=== PATIENT | female | born 1960 | race Caucasian/White ===

== ENCOUNTER → 2016-09-17 | Outpatient (CLI) | payer OTHER ==
[~2016-09-17] MED LIST: ADV25050 INHALATION; APRACLONIDINE 1% 0.1 ML OPH ONE; ASPI-664 PO; BENA40TA41 PO; IBUP-1542 PO; IPRA12.93 INHALATION; LANT3I SC; MTF1000T PO; NOVO3I SC; OPHTHALMIC IRRIG SOLUTION 120 ML ONE; PANT40TA3 PO; PILOCARPINE 2% 15ML OPH ONE; PROPARACAINE 0.5% 15 ML OPH ONE
== END | disposition home or self-care (01) ==
LOC: RAD 09:55
PROVIDERS: ATTEND Ophthalmology
DX: H40.20X0 Unspecified primary angle-closure glaucoma, stage unspecified (principal)
CPT/HCPCS: 66761; Z7610

== ENCOUNTER 2017-06-08 15:38 | Inpatient (IN) | payer OTHER ==
[~2017-06-08] VITALS: Ht 170.2 cm; Wt 95.1 kg
[~2017-06-08 15:38] MED LIST changes: -APRACLONIDINE 1% 0.1 ML OPH ONE; -OPHTHALMIC IRRIG SOLUTION 120 ML ONE; -PILOCARPINE 2% 15ML OPH ONE; -PROPARACAINE 0.5% 15 ML OPH ONE
--- NOTE | 2017-06-08 19:42 | ERA ---
ER Documentation Chief Complaint Date/Time DATE: 06/08/17 TIME: 19:39 Chief Complaint FROM [facility] HPI Patient is a 56-year-old female with diabetes and Charcot foot with history of osteomyelitis of the right foot who has had a chronic ulcer draining fluid. She was seen in the english lecturer's clinic today by Dr. Vides, who made noted that the skin appeared well-healed, but the patient was shivering and he was concerned that she may have infection. Patient denies having fevers. She states that she thought the clinic was called. She denies vomiting. She denies increased pain in the right foot.The patient reports having a CT scan 1 month ago which showed chronic osteomyelitis in the cuboid bone. The patient reports having an MRI 3 months ago, but does not know what the results showed.Patient is not currently on antibiotics. ROS All systems reviewed and are negative except as per history of present illness. Medications Home Meds Active Scripts Insulin Glargine* (Lantus*) 100 Unit/Ml Soln, 27 UNIT SC QAM for 30 Days Prov:NISHA FUCHS 06/08/16 Insulin Aspart* (Novolog Insulin Pen*) 100 Unit/Ml Soln, 5 UNIT SC WITH MEALS for 30 Days Prov:NISHA FUCHS 06/08/16 Pantoprazole* (Protonix*) 40 Mg Tablet., 40 MG PO BID for 30 Days, TAB Prov:NISHA FUCHS 06/08/16 Benazepril Hcl* (Benazepril Hcl*) 40 Mg Tablet, 40 MG PO DAILY for 30 Days, TAB Prov:NISHA FUCHS 06/08/16 Aspirin* (Aspirin* EC) 81 Mg Tablet.dr, 81 MG PO DAILY for 30 Days Prov:NISHA FUCHS 06/08/16 Reported Medications Pioglitazone Hcl* (Pioglitazone Hcl*) 30 Mg Tablet, 30 MG PO DAILY, TAB 06/08/17 Metformin Hcl* (Metformin Hcl*) 1,000 Mg Tablet, 1000 MG PO WITH BREAKFAST, #30 TAB 06/08/17 Ipratropium Wayne* (Atrovent HFA*) 12.9 Gm Aer.w.adap, 2 PUFF INHALATION Q4H Y for WHEEZING AND SOB, #1 INHALER 05/06/16 Salmeterol Xinaf/Fluticasone* (Advair*) 250-50 Diskus Inhaler, 1 INH INHALATION BID, #1 INHALER 05/06/16 Discontinued Reported Medications Ibuprofen* (Motrin*) 600 Mg Tab, 600 MG PO Q6H Y for PAIN, TAB 07/28/16 Discontinued Scripts Metformin* (Glucophage*) 1,000 Mg Tablet, 1000 MG PO BID, #60 TAB Prov:NISHA FUCHS 06/08/16 Allergies Allergies: Coded Allergies: No Known Allergy (Verified , 06/08/17) PMhx/Soc Past medical history: Diabetes mellitus, hypertension, Charcot foot, osteomyelitis Past surgical history: MOHS of face Social history: Denies tobacco, alcohol or illicit drugs. History of Surgery: Yes (SKIN CA ON FACE) Anesthesia Reaction: No Hx Neurological Disorder: No Hx Respiratory Disorders: Yes (COPD) Hx Cardiac Disorders: Yes (HTN) Hx Psychiatric Problems: No Hx Miscellaneous Medical Probl: No Hx Alcohol Use: No Hx Substance Use: No Hx Tobacco Use: No FmHx Noncontributory Physical Exam Vitals Vital Signs Date Time Temp Pulse Resp B/P Pulse Ox O2 Delivery O2 Flow Rate FiO2 06/08/17 23:00 99.5 101 16 123/58 100 Room Air 06/08/17 15:42 98.1 98 18 176/76 99 Physical Exam Const: Alert, no acute distress Head: Atraumatic Eyes: Normal Conjunctiva, No pallor, no icterus ENT: Normal External Ears, Nose and Mouth. Moist mucous membranes Neck: Full range of motion..~ No meningismus. Resp: Clear to auscultation bilaterally, No wheezes, no rales Cardio: Regular rate and rhythm, no murmurs Abd: Soft, non tender, non distended. Skin: No petechiae or rashes Back: No midline or flank tenderness Ext: No cyanosis,Trace edema to right ankle. Chronic deformity to right foot with diffuse erythema and warmth. No bulla formation. No drainage. Neur: Awake and alert, Cranial nerves II through XII intact bilaterally, strength sensation full in 4 extremities. Psych: Normal Mood and Affect Result Diagram: 06/08/17200406/08/172004 Results 24 hrs Laboratory Tests Test 06/08/17 20:05 06/08/17 20:37 White Blood Count 9.610^3/ul Red Blood Count 3.2410^6/ul Hemoglobin 9.3g/dl Hematocrit 29.1% Mean Corpuscular Volume 89.8fl Mean Corpuscular Hemoglobin 28.7pg Mean Corpuscular Hemoglobin Concent 32.0g/dl Red Cell Distribution Width 16.2% Platelet Count 85516^3/UL Mean Platelet Volume 8.9fl Neutrophils % 66.5% Lymphocytes % 25.2% Monocytes % 6.3% Eosinophils % 1.0% Basophils % 0.6% Nucleated Red Blood Cells % 0.0/100WBC Neutrophils # 6.410^3/ul Lymphocytes # 2.410^3/ul Monocytes # 0.610^3/ul Eosinophils # 0.110^3/ul Basophils # 0.110^3/ul Nucleated Red Blood Cells # 0.010^3/ul Erythrocyte Sedimentation Rate 130mm/Hr Sodium Level 137mmol/L Potassium Level 4.3mmol/L Chloride Level 104mmol/L Carbon Dioxide Level 26mmol/L Anion Gap 11 Blood Urea Nitrogen 34mg/dl Creatinine 1.00mg/dl Glucose Level 150mg/dl Lactic Acid Level 1.2mmol/L Calcium Level 10.0mg/dl Urine Color YELLOW Urine Clarity CLEAR Urine pH 5.0 Urine Specific [place] 1.017 Urine Ketones NEGATIVEmg/dL Urine Nitrite NEGATIVEmg/dL Urine Bilirubin NEGATIVEmg/dL Urine Urobilinogen NEGATIVEmg/dL Urine Leukocyte Esterase 1+Penelope/ul Urine Microscopic RBC 2/HPF Urine Microscopic WBC 18/HPF Urine Squamous Epithelial Cells FEW/HPF Urine Hemoglobin 1+mg/dL Urine Glucose NEGATIVEmg/dL Urine Total Protein NEGATIVEmg/dl Current Medications Medications (Trade) Dose Ordered Sig/Edgar Route PRN Reason Start Time Stop Time Status Last Admin Dose Admin Cefepime HCl 50 ml @ 100 mls/hr ONCE STAT IVPB 06/08/17 19:57 06/08/17 20:26 DC 06/08/17 20:44 Vancomycin HCl (Vancocin) 250 ml @ 125 mls/hr ONCE ONCE IVPB 06/08/17 20:00 06/08/17 21:59 DC 06/08/17 21:34 Salmeterol Xinafoate/ Fluticasone (Advair 250/50 Diskus) 1 inh BID INH 06/08/17 21:00 06/08/17 21:35 Ipratropium Wayne (Atrovent Hfa) 2 puff Q4 PRN INH SHORTNESS OF BREATH 06/08/17 20:30 06/08/17 21:35 Ondansetron HCl (Zofran Inj) 4 mg BRIDGE ORDER PRN IV NAUSEA AND/OR VOMITING 06/08/17 23:00 06/09/17 22:59 Acetaminophen (Tylenol Tab) 650 mg ER BRIDGE PRN PO MILD PAIN/FEVER 06/08/17 23:00 06/09/17 22:59 Procedures/MDM MDM: Patient is a 56-year-old female sent to the clinic by her english lecturer, Dr. Vides, for concern for osteomyelitis of the right foot. He noted that the patient was having chills and clinic and had temperature of 100.1 Fahrenheit. She has chronic erythema to the right foot and has Charcot foot. A CT scan performed 1 month ago showed chronic osteomyelitis of the cuboid bone. She has previously been treated for osteomyelitis but is currently not on antibiotics. Patient states that she feels well and has not noted significant change to her foot, but I discussed the case with Dr. Vides, and he advised admission for further workup of osteomyelitis. She may have acute on chronic osteomyelitis. ESR was significantly elevated. There is no significant hyperglycemia. She did have an elevated BUN suggestive of mild dehydration. She was given IV antibiotics and fluids. She had stable vital signs. Departure Diagnosis: Primary Impression: Osteomyelitis of right foot Qualified Code: M86.9 - Osteomyelitis of right foot, unspecified type Additional Impressions: Charcot's joint of foot Qualified Code: M14.671 - Charcot's joint of right foot Diabetes mellitus Qualified Code: E11.610 - Type 2 diabetes mellitus with diabetic neuropathic arthropathy, without long-term current use of insulin Condition: EMMA Elias MD Jun 08, 2017 19:42
[2017-06-08] MEDS ORDERED: CEFEPIME 2GM/50 ML (PMX) 50 ML IVPB STA (19:57)
[2017-06-08] MEDS ORDERED: VANCOMYCIN 1 GM (PMX) 250 ML IVPB ONE (20:00)
--- NOTE | 2017-06-08 20:05 | RADRPT ---
PROCEDURE: XR Chest. CLINICAL INDICATION: Hyperglycemia. Shortness of breath. TECHNIQUE: Single frontal view. COMPARISON: 06/13/2016. FINDINGS: The lungs are clear. The heart size is normal. There is no pleural effusion. There is no pneumothorax. The left arm PICC line has been removed. IMPRESSION: 1. Normal chest radiograph. 2. Left arm PICC line removed. 3. No other change from 06/13/2016. RPTAT: QQ .Harshad Andrew MD, MD Date Time Electronically viewed and signed by .Harshad Andrew MD, MD on 06/08/2017 20:05 .R/
[2017-06-08] MEDS ORDERED: IPRATROPIUM (HFA) 12.9 GM INHALER INH PRN (20:30)
--- NOTE | 2017-06-08 20:30 | RADRPT ---
PROCEDURE: X-ray right foot CLINICAL INDICATION: Neuropathic changes of the right foot with concern for osteomyelitis. TECHNIQUE: 3 views right foot. COMPARISON: Right foot plain film series dated 05/26/2016. FINDINGS: Neuropathic changes in the right foot again seen with destruction of the midfoot and lateral subluxa tion of the bases of the second through fifth metatarsals on the midfoot remnant. Soft tissue ulcera tions are seen over the foot. No plain film evidence of osteomyelitis. MRI examination be of further use. Neuropathic destruction of the mid foot is increased over interval with near complete destruction of the talus and partial destruction of the proximal calcaneus. There is new pseudoarthrosis between t he talus and calcaneus. IMPRESSION: Neuropathic changes in the right foot without plain film evidence of osteomyelitis and consider MRI correlation. RPTAT: [facility] Physician Diaz Date Time Electronically viewed and signed by Physician Diaz on 06/08/2017 20:59 RS/
[2017-06-08 20:31] LABS: BASOPHIL # 0.1 10^3/ul (0.0-0.1); BASOPHILS % 0.6 % (0.0-2.0); EOSINOPHILS # 0.1 10^3/ul (0.0-0.5); HEMATOCRIT 29.1 % (37.0-47.0); HEMOGLOBIN 9.3 g/dl (12.0-16.0); LYMPHOCYTES # 2.4 10^3/ul (0.8-2.9); LYMPHOCYTES % 25.2 % (15.0-51.0); MEAN CORPUSCULAR HEMOGLOBIN 28.7 pg (29.0-33.0); MEAN CORPUSCULAR VOLUME 89.8 fl (82.0-101.0); MEAN PLATELET VOLUME 8.9 fl (7.4-10.4); MONOCYTE # 0.6 10^3/ul (0.3-0.9); MONOCYTES % 6.3 % (0.0-11.0); NEUTROPHIL # 6.4 10^3/ul (1.6-7.5); NEUTROPHILS % 66.5 % (39.0-77.0); PLATELET COUNT 465 10^3/UL (140-415); RED BLOOD COUNT 3.24 10^6/ul (4.20-5.40); RED CELL DISTRIBUTION WIDTH 16.2 % (11.5-14.5); WHITE BLOOD COUNT 9.6 10^3/ul (4.8-10.8)
[2017-06-08 20:48] LABS: POTASSIUM 4.3 mmol/L (3.5-5.1)
[2017-06-08 20:55] LABS: ADD UMIC YES; UR ASCORBIC ACID NEGATIVE (NEGATIVE); UR BILIRUBIN (Dip) NEGATIVE (NEGATIVE); UR BLOOD (Dip) 1+ mg/dL (NEGATIVE); UR CLARITY CLEAR (CLEAR); UR COLOR YELLOW (YELLOW); UR GLUCOSE (Dip) NEGATIVE (NEGATIVE); UR KETONES (Dip) NEGATIVE (NEGATIVE); UR LEUKOCYTE ESTERASE (Dip) 1+ Leu/ul (NEGATIVE); UR NITRITE (Dip) NEGATIVE (NEGATIVE); UR RBC 2 /HPF (0-5); UR SPECIFIC GRAVITY (Dip) 1.017 (1.003-1.030); UR SQUAMOUS EPITHELIAL CELL FEW /HPF (FEW); UR TOTAL PROTEIN (Dip) NEGATIVE (NEGATIVE); UR UROBILINOGEN (Dip) NEGATIVE (NEGATIVE)
[2017-06-08] MEDS ORDERED: SALMETEROL/FLUTICASONE 250/50 INHA INH SCH (21:00)
[2017-06-08] MEDS ORDERED: METF1000 PO (21:05)
[2017-06-08] MEDS ORDERED: PIOG30TA26 PO (21:06)
[2017-06-08 23:00] VITALS: TEMP 99.5
[2017-06-08] MEDS ORDERED: ACETAMINOPHEN 325 MG TAB PO PRN (23:00)
[2017-06-08] MEDS ORDERED: ONDANSETRON 4 MG INJ IV PRN (23:00)
[2017-06-09 00:30] VITALS: BP 117/57; PULSE 104; RESP 20
[2017-06-09] MEDS ORDERED: SOD CHLORIDE 0.9% 1,000 ML IV ONE (00:30)
--- NOTE | 2017-06-09 00:59 | RADRPT ---
PROCEDURE: MR Foot. CLINICAL INDICATION: Diabetic foot ulcer. Concern for osteomyelitis. TECHNIQUE: Noncontrast MRI examination of the right foot, with axial, sagittal and coronal images. T1-weighted and STIR sequences were employed. COMPARISON: Today, about 2 hours ago. MRI examination right foot dated 06/01/2016 FINDINGS: Neuropathic right midfoot with osseous destruction. The since prior MRI examination dated and 06/01/2016 there is interval destruction of the anterior a nd inferior calcaneus with pseudoarthrosis at the remnant of the right calcaneus. There is new destr uction of the right calcaneus at its mid and anterior portions. Large complex fluid collection seen in region of pseudoarthrosis, with loss of T1 signal in the remnants of the talus and calcaneus sugg esting chronic osteomyelitis. Low signal also seen in the cuboid and navicular, compatible with oste omyelitis. There is a soft tissue defect of the plantar aspect of the lateral right foot, similar in appearance to prior examination. Low T1-weighted signal in the distal tibia and fibula, suggesting osteomyelitis. There is dorsal subluxation of the bases of the first through fifth metacarpals on the cuneiforms, w ith mild overriding. The cuboid appears to be subluxed medially. IMPRESSION: 1. Osteomyelitis the distal tibia and fibula, the talar remnant, the calcaneal remnant, the cuboid a nd navicular. 2. Pseudoarthrosis at the talar and calcaneal remnants, with complex fluid collection in region of p seudarthrosis, perhaps representing an abscess. 3. Consider more sensitive and specific IV contrast enhanced MRI examination for further evaluation. 4. Increased osseous destruction in the right mid lung that over interval since 06/01/2016. RPTAT: [facility] Phys[facility] Diaz Date Time Electronically viewed and signed by Physician Diaz on 06/09/2017 00:58 /
[2017-06-09] MEDS ORDERED: VANCOMYCIN IV PER PHARMACY XX SCH (01:00)
[2017-06-09] MEDS ORDERED: morphine 4 MG/ML VIAL IV PRN (01:00)
[2017-06-09] MEDS ORDERED: ACETAMINOPHEN 325 MG TAB PO PRN (01:00)
[2017-06-09] MEDS ORDERED: ONDANSETRON 4 MG INJ IV PRN (01:00)
[2017-06-09 01:08] VITALS: Ht 170.2 cm; Wt 95.1 kg
[2017-06-09] MEDS: ZOLPIDEM 5 MG TAB PO PRN ×2 (01:32→21:22)
[2017-06-09] MEDS: ACCU-CHEK XX SCH (02:00)
[2017-06-09] MEDS ORDERED: ACCU-CHEK XX SCH (02:00)
[2017-06-09 06:09] LABS: BASOPHILS % 0.5 % (0.0-2.0); EOSINOPHILS # 0.1 10^3/ul (0.0-0.5); EOSINOPHILS % 0.9 % (0.0-7.0); HEMATOCRIT 24.9 % (37.0-47.0); HEMOGLOBIN 7.9 g/dl (12.0-16.0); LYMPHOCYTES # 2.4 10^3/ul (0.8-2.9); LYMPHOCYTES % 27.3 % (15.0-51.0); MEAN CORPUSCULAR HEMOGLOBIN 27.9 pg (29.0-33.0); MEAN CORPUSCULAR HGB CONC 31.7 g/dl (32.0-37.0); MEAN PLATELET VOLUME 9.1 fl (7.4-10.4); MONOCYTE # 0.8 10^3/ul (0.3-0.9); MONOCYTES % 9.6 % (0.0-11.0); NEUTROPHIL # 5.3 10^3/ul (1.6-7.5); NEUTROPHILS % 61.2 % (39.0-77.0); PLATELET COUNT 391 10^3/UL (140-415); RED BLOOD COUNT 2.83 10^6/ul (4.20-5.40); RED CELL DISTRIBUTION WIDTH 16.4 % (11.5-14.5); WHITE BLOOD COUNT 8.7 10^3/ul (4.8-10.8)
[2017-06-09] MEDS: PANTOPRAZOLE (EC) 40 MG TAB PO SCH ×2 (06:21→17:21)
[2017-06-09 06:50] LABS: ALBUMIN 3.4 g/dl (3.3-4.9); ALBUMIN/GLOBULIN RATIO 0.72; BILIRUBIN,INDIRECT 0.2 mg/dl (0-1.1); BILIRUBIN,TOTAL 0.2 mg/dl (0.2-1.3); CALCIUM 9.7 mg/dl (8.4-10.2); CHOL/HDL RATIO 4.1 RATIO; CREATININE 0.9 mg/dl (0.44-1.00); MAGNESIUM 1.5 mg/dl (1.7-2.5); PHOSPHORUS 3.2 mg/dl (2.5-4.9); POTASSIUM 4.3 mmol/L (3.5-5.1); TOTAL PROTEIN 8.1 g/dl (6.1-8.1)
--- NOTE | 2017-06-09 06:56 | HP ---
Date/Time of Note Date/Time of Note DATE: 06/09/17 TIME: 06:41 Assessment/Plan VTE Prophylaxis VTE Prophylaxis Intervention: LMWH Lines/Catheters IV [facility]from [facility] Saline Lock Assessment/Plan Assessment/Plan ASSESSMENT 56-year-old female with history of right Charcot foot, right foot osteomyelitis , hypertension, COPD, anxiety/depression, diabetes, esophagitis/gastritis with right foot swelling/tenderness/erythema secondary to worsening osteomyelitis with increased osseous destruction and probable abscess formation. PLAN Broad-spectrum IV antibiotic ID consult Podiatry to follow in-house Continue home medications adjustment as needed Monitor H&H closely and transfuse as needed HPI/ROS Admit Date/Time Admit Date/Time Jun 08, 2017 at 22:59 Hx of Present Illness This is a 56-year-old female with history of right Charcot foot, right foot osteomyelitis, hypertension, COPD, anxiety/depression, diabetes, esophagitis/ gastritis who was sent from [facility] for right foot swelling/tenderness/erythema. Patient uses a walker for ambulation and reported worsening pain of the right foot. She reported having had some yellowish drainage from the heel of her right foot a week or so ago. Reported chills here in the hospital which she attributed to the room being cold otherwise denied fever. Right foot MRI shows the followin. Osteomyelitis the distal tibia and fibula, the talar remnant, the calcaneal remnant, the cuboid and navicular. 2. Pseudoarthrosis at the talar and calcaneal remnants, with complex fluid collection in region of pseudarthrosis, perhaps representing an abscess. 3. Consider more sensitive and specific IV contrast enhanced MRI examination for further evaluation. 4. Increased osseous destruction in the right mid lung that over interval since 06/01/2016. PMH/Family/Social Past Surgical History Past Surgical Hx: no surgical history Social History Smoking Status: Former smoker Exam/Review of Systems Vital Signs Vitals Vital Signs Date Time Temp Pulse Resp B/P Pulse Ox O2 Delivery O2 Flow Rate FiO2 06/09/17 00:30 99.5 104 20 117/57 95 Room Air Intake and Output 06/08/17 06/08/17 06/09/17 14:59 22:59 06:59 Intake Total 750 ml Output Total 400 ml Balance 350 ml Exam Constitutional: alert, oriented, well developed Head: atraumatic, normocephalic Eyes: EOMI, PERRL Respiratory: clear to auscultation, normal air movement Cardiovascular: nl pulses, regular rate and rhythm Gastrointestinal: non-tender, soft Extremities: other (Right foot is currently covered, but there is notable swelling and tenderness) Labs Result Diagram: 06/09/1751706/08/172004 Medications Medications Current Medications Cefepime HCl (Maxipime 1gm/50 ml (Pmx)) 50 ml @ 100 mls/hr Q12 IVPB ; Start at 09:00 Acetaminophen (Tylenol Tab) 650 mg Q4H PRN PO PAIN AND OR ELEVATED TEMP; Start 06/09/17 at 01:00 Acetaminophen/ Hydrocodone Bitart ([place] (5/325)) 1 tab Q4H PRN PO MODERATE PAIN; Start 06/09/17 at 01:00 Morphine Sulfate (morphine) 3 mg Q4H PRN IV SEVERE PAIN; Start 06/09/17 at 01: 00 Ondansetron HCl (Zofran Inj) 4 mg Q6H PRN IV NAUSEA AND/OR VOMITING; Start at 01:00 Zolpidem Tartrate (Ambien) 10 mg HS PRN PO INSOMNIA Last administered on 01:32; Admin Dose 5 MG; Start 06/09/17 at 01:00 Enoxaparin Sodium (Lovenox) 40 mg DAILY SC ; Start 06/09/17 at 09:00 Aspirin (Halfprin) 81 mg DAILY PO ; Start 06/09/17 at 09:00 Benazepril HCl (Lotensin) 40 mg DAILY PO ; Start 06/09/17 at 09:00 Pantoprazole (Protonix Tab) 40 mg BID@06,18 PO Last administered on 06/09/17 06:21; Admin Dose 40 MG; Start 06/09/17 at 06:00 Salmeterol Xinafoate/ Fluticasone (Advair 250/50 Diskus) 1 inh BID INH ; Start 06/09/17 at 09:00 Diagnostic Test (Pha) (Accu-Chek) 1 ea 02 XX ; Start 06/09/17 at 02:00 Insulin Glargine 27 unit 27 unit DAILY@08 SC ; Start 06/09/17 at 08:00 Vancomycin HCl/ Sodium Chloride (Vancocin/NS) 250 ml @ 83.333 mls/ hr Q12H IVPB ; Start 06/09/17 at 08:00 Influenza Virus Vaccine (Fluzone) 0.5 ml ONCE ONCE IM* ; Start 06/10/17 at 09:00 ; Stop 06/10/17 at 09:01 NEHAL VEGA MD Jun 09, 2017 06:54
[2017-06-09 07:37] VITALS: BP 108/52; RESP 16
[2017-06-09] MEDS: ASPIRIN (EC) 81 MG TAB PO SCH (08:17)
[2017-06-09] MEDS: CEFEPIME 1GM/50 ML (PMX) 50 ML IVPB SCH ×2 (08:18→23:09)
[2017-06-09] MEDS: BENAZEPRIL 40 MG TAB PO SCH (08:18)
[2017-06-09] MEDS: INSULIN ASPART [NOVOLOG] 3 ML PEN SC SCH ×7 (08:21→21:00)
[2017-06-09] MEDS: INSULIN GLARGINE [LANtus] 3 ML PEN SC SCH (08:22)
[2017-06-09] MEDS: ENOXAPARIN 40 MG/0.4 ML SYG SC SCH (08:23)
[2017-06-09] MEDS: SALMETEROL/FLUTICASONE 250/50 INHA INH SCH ×2 (08:23→20:03)
[2017-06-09] MEDS: VANCOMYCIN 1.25 GM in SOD CHLORIDE 0.9% 250 ML IVPB SCH ×2 (08:28→20:02)
[2017-06-09 14:04] VITALS: BP 109/58; RESP 16
--- NOTE | 2017-06-09 15:53 | PN ---
Date/Time of Note Date/Time of Note DATE: 06/09/17 TIME: 15:51 Assessment/Plan VTE Prophylaxis VTE Prophylaxis Intervention: LMWH Lines/Catheters IV [facility]from [facility] Saline Lock Assessment/Plan Chief Complaint/Hosp Course Patient is a 56-year-old female with a history of right foot osteomyelitis and right Charcot foot who presents with worsening right foot pain as a direct admit from podiatry with possible new onset osteomyelitis and abscess Assessment Osteomyelitis of the distal tibia and fibula, talar remnant, calcaneum remnant, cuboid, navicular Pseudoarthrosis of right foot with complex fluid collection, possible abscess Chronic right foot pain Right Charcot foot Anemia Diabetes Hypertension COPD Anxiety Plan -Patient was sent as direct admit from podiatry, Dr. Demetrio Vides, notified, patient started on broad-spectrum antibiotics, ID also consulted -Continue patient's home medications as needed -Patient's hemoglobin dropped from 9.3-7.9 and a matter of 7 hours, however do not suspect acute bleed at this time, will monitor and if abnormal tomorrow will perform additional workup for anemia. This drop may be explained by fluid bolus in the ED between those blood draws. -Pain control as needed -Insulin for diabetes -Breathing treatments as needed -Follow-up with podiatry recommendations and proceed after possible intervention - Problems: Subjective 24 Hr Interval Summary Free Text/Dictation R foot pain, no other acute complaints at this time Exam/Review of Systems Vital Signs Vitals Vital Signs Date Time Temp Pulse Resp B/P Pulse Ox O2 Delivery O2 Flow Rate FiO2 06/09/17 14:04 98.4 79 16 109/58 97 06/09/17 00:30 Room Air Intake and Output 06/08/17 06/08/17 06/09/17 15:00 23:00 07:00 Intake Total 750 ml Output Total 400 ml Balance 350 ml Exam Physical exam General: Patient is laying in bed and answers questions appropriately Mentation: Patient is alert and oriented 4, Head: Normocephalic atraumatic Eyes: EOMI, pupils reactive to light Neck: Supple, nontender, midline Respiratory: Clear to auscultation bilaterally Cardiovascular: regular rate, no obvious murmurs Gastrointestinal: non-tender to palpation, bowel sounds heard. Neurological: Moves all extremities spontaneously Skin:R foot does not have obvious purulent drainage. Healed wound on bottom of foot, tenderness and erythema located on heel/ankle area on the R Results Result Diagram: 06/09/17 0518 06/09/17 0518 Results 24 hrs Laboratory Tests Test 06/08/17 20:05 06/08/17 20:37 06/09/17 05:18 06/09/17 07:41 White Blood Count 9.6 # 8.7 Red Blood Count 3.24 L 2.83 L Hemoglobin 9.3 L 7.9 L Hematocrit 29.1 L 24.9 L Mean Corpuscular Volume 89.8 88.0 Mean Corpuscular Hemoglobin 28.7 L 27.9 L Mean Corpuscular Hemoglobin Concent 32.0 31.7 L Red Cell Distribution Width 16.2 H 16.4 H Platelet Count 465 H 391 Mean Platelet Volume 8.9 9.1 Neutrophils % 66.5 61.2 Lymphocytes % 25.2 27.3 Monocytes % 6.3 9.6 Eosinophils % 1.0 0.9 Basophils % 0.6 0.5 Nucleated Red Blood Cells % 0.0 0.0 Neutrophils # 6.4 5.3 Lymphocytes # 2.4 2.4 Monocytes # 0.6 0.8 Eosinophils # 0.1 0.1 Basophils # 0.1 0.0 Nucleated Red Blood Cells # 0.0 0.0 Erythrocyte Sedimentation Rate 130 H Sodium Level 137 137 Potassium Level 4.3 4.3 Chloride Level 104 106 Carbon Dioxide Level 26 26 Anion Gap 11 9 Blood Urea Nitrogen 34 H 25 H Creatinine 1.00 0.90 Glucose Level 150 143 Lactic Acid Level 1.2 Calcium Level 10.0 9.7 Urine Color YELLOW Urine Clarity CLEAR Urine pH 5.0 Urine Specific [place] 1.017 Urine Ketones NEGATIVE Urine Nitrite NEGATIVE Urine Bilirubin NEGATIVE Urine Urobilinogen NEGATIVE Urine Leukocyte Esterase 1+ H Urine Microscopic RBC 2 Urine Microscopic WBC 18 H Urine Squamous Epithelial Cells FEW Urine Hemoglobin 1+ H Urine Glucose NEGATIVE Urine Total Protein NEGATIVE Hemoglobin A1c 6.5 H Phosphorus Level 3.2 Magnesium Level 1.5 L Total Bilirubin 0.2 Direct Bilirubin 0.00 Indirect Bilirubin 0.2 Aspartate Amino Transf (AST/SGOT) 13 L Alanine Aminotransferase (ALT/SGPT) 17 Alkaline Phosphatase 104 Total Protein 8.1 Albumin 3.4 Globulin 4.70 H Albumin/Globulin Ratio 0.72 Triglycerides Level 57 Cholesterol Level 130 LDL Cholesterol, Calculated 88 HDL Cholesterol 31 L Cholesterol/HDL Ratio 4.1 Bedside Glucose 157 Test 06/09/17 12:06 Bedside Glucose 116 Medications Medications Current Medications Cefepime HCl (Maxipime 1gm/50 ml (Pmx)) 50 ml @ 100 mls/hr Q12 IVPB Last administered on 06/09/17 08:18; Admin Dose 100 MLS/HR; Start 06/09/17 at 09:00 Acetaminophen (Tylenol Tab) 650 mg Q4H PRN PO PAIN AND OR ELEVATED TEMP; Start 06/09/17 at 01:00 Acetaminophen/ Hydrocodone Bitart ([place] (5/325)) 1 tab Q4H PRN PO MODERATE PAIN; Start 06/09/17 at 01:00 Morphine Sulfate (morphine) 3 mg Q4H PRN IV SEVERE PAIN; Start 06/09/17 at 01: 00 Ondansetron HCl (Zofran Inj) 4 mg Q6H PRN IV NAUSEA AND/OR VOMITING; Start at 01:00 Zolpidem Tartrate (Ambien) 10 mg HS PRN PO INSOMNIA Last administered on 01:32; Admin Dose 5 MG; Start 06/09/17 at 01:00 Enoxaparin Sodium (Lovenox) 40 mg DAILY SC Last administered on 06/09/17 08:23 ; Admin Dose 40 MG; Start 06/09/17 at 09:00 Aspirin (Halfprin) 81 mg DAILY PO Last administered on 06/09/17 08:17; Admin Dose 81 MG; Start 06/09/17 at 09:00 Benazepril HCl (Lotensin) 40 mg DAILY PO Last administered on 06/09/17 08:18; Admin Dose 40 MG; Start 06/09/17 at 09:00 Pantoprazole (Protonix Tab) 40 mg BID@06,18 PO Last administered on 06/09/17 06:21; Admin Dose 40 MG; Start 06/09/17 at 06:00 Salmeterol Xinafoate/ Fluticasone (Advair 250/50 Diskus) 1 inh BID INH Last administered on 06/09/17 08:23; Admin Dose 1 INH; Start 06/09/17 at 09:00 Diagnostic Test (Pha) (Accu-Chek) 1 ea 02 XX ; Start 06/09/17 at 02:00 Insulin Glargine 27 unit 27 unit DAILY@08 SC Last administered on 06/09/17 08: 22; Admin Dose 27 UNIT; Start 06/09/17 at 08:00 Vancomycin HCl/ Sodium Chloride (Vancocin/NS) 250 ml @ 83.333 mls/ hr Q12H IVPB Last administered on 06/09/17 08:28; Admin Dose 83.333 MLS/HR; Start at 08:00 Influenza Virus Vaccine (Fluzone) 0.5 ml ONCE ONCE IM* ; Start 06/10/17 at 09:00 ; Stop 06/10/17 at 09:01 JANIS AGUIRRE Jun 09, 2017 15:53
[2017-06-09 19:31] VITALS: BP 111/56; RESP 20
[2017-06-09] MEDS: IPRATROPIUM (HFA) 12.9 GM INHALER INH PRN (20:03)
--- NOTE | 2017-06-09 20:10 | CONS ---
DATE OF ADMISSION: 06/08/2017 DATE OF CONSULTATION: 06/09/2017 REASON FOR CONSULTATION: Antibiotic management. HISTORY OF PRESENT ILLNESS: Zeina Sherwood is a 56-year-old female, with a history of right foot osteomyelitis and right foot Charcot joint who presents with worsening right foot pain is a direct admit from Podiatry. She has possible new onset osteomyelitis and abscess. PAST MEDICAL HISTORY: Include: 1. Adult-onset diabetes mellitus. 2. Right Charcot foot. 3. Chronic right foot pain. 4. Osteomyelitis of the distal tibia and fibula, talar remnant, calcaneal remnant, cuboid and navicular. 5. Pseudoarthrosis of the right foot with complex fluid collection and possible abscess. PAST SURGICAL HISTORY: Operations as outlined. FAMILY HISTORY: Noncontributory. SOCIAL HISTORY: She does not smoke, drink, or abuse drugs. ALLERGIES: NONE TO PENICILLIN, SULFA, OR FOODS. MEDICATION: Per chart. REVIEW OF SYSTEMS: As per HPI. PHYSICAL EXAMINATION: GENERAL APPEARANCE: The patient is a well-developed, well- nourished female, who is alert, responsive, in no acute distress. VITAL SIGNS: Stable. She is afebrile. SKIN: Without generalized rash. HEENT: Within normal limits. NECK: Supple. Lymph nodes nonpalpable. CHEST: Decreased breath sounds at the bases. HEART: Without murmur or gallop. ABDOMEN: Soft, nontender without organosplenomegaly or masses. EXTREMITIES: Her right foot does not have purulent drainage and there is tenderness and erythema in the area of the ankle and heel. LABORATORY: White count of 8.7, H and H of 7.9 and 24.9, platelet count 391,000. BUN 25 and creatinine 0.9, glucose of 143. Patient was started on vancomycin and cefepime. She will be followed up by Dr. José Antonio Vides. An MRI was done on the which showed osteomyelitis of the distal tibia and fibula, the talar remnant, the calcaneal remnant, the cuboid and navicular; pseudoarthrosis at the talar and calcaneal remnant, complex fluid collection in the region of pseudoarthrosis perhaps representing an abscess. Consider more sensitive and specific intravenous contrast and enhanced MRI examination for further evaluation. Increased osseous destruction in the right mid lung since 06/01/2016. Chest x-ray: Normal chest x-ray. Left arm PICC line removed and no other changes. IMPRESSION AND PLAN: Patient has osteomyelitis. She also has gram-negative rods in her urine but this is all being covered with vancomycin and cefepime. She has 1+ leukocyte esterase, 18 white cells per high-power field. I will dictate my findings to the hospitalists and Dr. Vides. Dictated By: Nilse Humphries MD JD/tran/cameron /Document#: [id number]
[2017-06-09] MEDS: HYDROCODONE/APAP (5/325) TAB PO PRN (20:12)
[2017-06-10] MEDS: ACCU-CHEK XX SCH (02:00)
[2017-06-10 02:12] VITALS: BP 104/52; RESP 20
[2017-06-10 06:02] LABS: BASOPHILS % 0.5 % (0.0-2.0); EOSINOPHILS # 0.2 10^3/ul (0.0-0.5); HEMATOCRIT 25.1 % (37.0-47.0); HEMOGLOBIN 7.9 g/dl (12.0-16.0); LYMPHOCYTES # 2.2 10^3/ul (0.8-2.9); LYMPHOCYTES % 28.9 % (15.0-51.0); MEAN CORPUSCULAR HEMOGLOBIN 28.1 pg (29.0-33.0); MEAN CORPUSCULAR HGB CONC 31.5 g/dl (32.0-37.0); MEAN CORPUSCULAR VOLUME 89.3 fl (82.0-101.0); MEAN PLATELET VOLUME 8.9 fl (7.4-10.4); MONOCYTE # 0.7 10^3/ul (0.3-0.9); MONOCYTES % 9.6 % (0.0-11.0); NEUTROPHIL # 4.4 10^3/ul (1.6-7.5); NEUTROPHILS % 58.6 % (39.0-77.0); PLATELET COUNT 364 10^3/UL (140-415); RED BLOOD COUNT 2.81 10^6/ul (4.20-5.40); RED CELL DISTRIBUTION WIDTH 16.5 % (11.5-14.5); WHITE BLOOD COUNT 7.5 10^3/ul (4.8-10.8)
[2017-06-10 06:14] LABS: CALCIUM 9.7 mg/dl (8.4-10.2); CREATININE 0.84 mg/dl (0.44-1.00); MAGNESIUM 1.7 mg/dl (1.7-2.5); PHOSPHORUS 4.1 mg/dl (2.5-4.9); POTASSIUM 4.3 mmol/L (3.5-5.1)
[2017-06-10] MEDS: PANTOPRAZOLE (EC) 40 MG TAB PO SCH ×2 (06:23→18:23)
[2017-06-10 07:30] VITALS: BP 111/57; RESP 18
[2017-06-10] MEDS: ASPIRIN (EC) 81 MG TAB PO SCH (08:12)
[2017-06-10] MEDS: BENAZEPRIL 40 MG TAB PO SCH (08:13)
[2017-06-10] MEDS: CEFEPIME 1GM/50 ML (PMX) 50 ML IVPB SCH ×2 (08:13→20:38)
[2017-06-10] MEDS: SALMETEROL/FLUTICASONE 250/50 INHA INH SCH ×2 (08:13→20:38)
[2017-06-10] MEDS: IPRATROPIUM (HFA) 12.9 GM INHALER INH PRN ×2 (08:14→14:33)
[2017-06-10] MEDS: INSULIN ASPART [NOVOLOG] 3 ML PEN SC SCH ×7 (08:15→20:39)
[2017-06-10] MEDS: ENOXAPARIN 40 MG/0.4 ML SYG SC SCH (08:23)
[2017-06-10] MEDS: INSULIN GLARGINE [LANtus] 3 ML PEN SC SCH (08:27)
[2017-06-10] MEDS ORDERED: INFLUENZA VIRUS VACCINE 0.5 ML (DISPENSING) IM* ONE (09:00)
[2017-06-10] MEDS: VANCOMYCIN 1.25 GM in SOD CHLORIDE 0.9% 250 ML IVPB SCH (09:43)
--- NOTE | 2017-06-10 13:25 | PN ---
DATE: 06/10/2017 SUBJECTIVE DATA: No events overnight. The patient is alert, feels better, looks comfortable. Denies pain. Wants to go home. No fevers. LABORATORY AND DIAGNOSTIC DATA: WBC 7.5, platelets 364. ESR on admission was 130. BUN 22, creatinine 0.84. ANTIMICROBIALS: 1. Vancomycin. 2. Cefepime. MICROBIOLOGY: Blood cultures remain negative. Urine culture growing E coli. PHYSICAL EXAMINATION: GENERAL: This is a well-developed, middle-aged white woman, who is awake, in no distress. HEENT: Head atraumatic, normocephalic. Sclerae anicteric. Buccal mucosa dry. NECK: Supple. LUNGS: Chest rise symmetrical. Breath sounds diminished at the bases. HEART: S1, S2. ABDOMEN: Soft, bowel sounds present. EXTREMITIES: With right foot erythema, edema and deformity. ASSESSMENT: 1. Right foot cellulitis with osteomyelitis and questionable abscess. 2. Escherichia coli urinary tract infection. 3. Diabetes. 4. Right Charcot. 5. Obesity. PLAN: The patient remains stable. Awaiting for podiatry evaluation. Continue on current antibiotics. Consider PICC line placement. The patient will require long-term IV antibiotics. Dictated By: Leatha Simms NP /tran/maximilian /Document#: [id number]
[2017-06-10] MEDS ORDERED: LIDOCAINE 1% (MPF) 5 ML VIAL SC ONE (13:30)
--- NOTE | 2017-06-10 13:35 | PN ---
Date/Time of Note Date/Time of Note DATE: 06/10/17 TIME: 13:31 Assessment/Plan VTE Prophylaxis VTE Prophylaxis Intervention: SCD's Lines/Catheters IV Catheter Type (from Nrs): Saline Lock Assessment/Plan Chief Complaint/Hosp Course Patient is a 56-year-old female with a history of right foot osteomyelitis and right Charcot foot who presents with worsening right foot pain as a direct admit from podiatry with possible new onset osteomyelitis and abscess Assessment Osteomyelitis of the distal tibia and fibula, talar remnant, calcaneum remnant, cuboid, navicular Pseudoarthrosis of right foot with complex fluid collection, possible abscess Chronic right foot pain Right Charcot foot Anemia Diabetes Hypertension COPD Anxiety Plan -Patient was sent as direct admit from podiatry, Dr. Demetrio Vides, notified, patient started on broad-spectrum antibiotics, ID also consulted -Continue patient's home medications as needed -anemia stable, likely due to hemodilution. likely 2/2 DM/anemia chronic disease , labs ordered. -Pain control as needed -Insulin for diabetes -Breathing treatments as needed -Follow-up with podiatry recommendations and proceed after possible intervention -picc line for today - Problems: Subjective 24 Hr Interval Summary Free Text/Dictation no new complaints Exam/Review of Systems Vital Signs Vitals Vital Signs Date Time Temp Pulse Resp B/P Pulse Ox O2 Delivery O2 Flow Rate FiO2 06/10/17 02:12 97.7 72 20 104/52 98 06/09/17 00:30 Room Air Intake and Output 06/09/17 06/09/17 06/10/17 15:00 23:00 07:00 Intake Total 1580 ml 800 ml Output Total 1400 ml Balance 180 ml 800 ml Exam Physical exam General: Patient is laying in bed and answers questions appropriately Mentation: Patient is alert and oriented 4, Head: Normocephalic atraumatic Eyes: EOMI, pupils reactive to light Neck: Supple, nontender, midline Respiratory: Clear to auscultation bilaterally Cardiovascular: regular rate, no obvious murmurs Gastrointestinal: non-tender to palpation, bowel sounds heard. Neurological: Moves all extremities spontaneously Skin:R foot does not have obvious purulent drainage. Healed wound on bottom of foot, tenderness and erythema located on heel/ankle area on the R Results Result Diagram: 06/10/17 0520 06/10/17 0520 Results 24 hrs Laboratory Tests Test 06/09/17 17:17 06/09/17 21:27 06/10/17 05:20 06/10/17 08:11 Bedside Glucose 135 138 137 White Blood Count 7.5 Red Blood Count 2.81 L Hemoglobin 7.9 L Hematocrit 25.1 L Mean Corpuscular Volume 89.3 Mean Corpuscular Hemoglobin 28.1 L Mean Corpuscular Hemoglobin Concent 31.5 L Red Cell Distribution Width 16.5 H Platelet Count 364 Mean Platelet Volume 8.9 Neutrophils % 58.6 Lymphocytes % 28.9 Monocytes % 9.6 Eosinophils % 2.0 Basophils % 0.5 Nucleated Red Blood Cells % 0.0 Neutrophils # 4.4 Lymphocytes # 2.2 Monocytes # 0.7 Eosinophils # 0.2 Basophils # 0.0 Nucleated Red Blood Cells # 0.0 Sodium Level 137 Potassium Level 4.3 Chloride Level 107 Carbon Dioxide Level 25 Anion Gap 9 Blood Urea Nitrogen 22 H Creatinine 0.84 Glucose Level 134 Calcium Level 9.7 Phosphorus Level 4.1 Magnesium Level 1.7 Test 06/10/17 12:23 Bedside Glucose 196 Medications Medications Current Medications Cefepime HCl (Maxipime 1gm/50 ml (Pmx)) 50 ml @ 100 mls/hr Q12 IVPB Last administered on 06/10/17 08:13; Admin Dose 100 MLS/HR; Start 06/09/17 at 09:00 Acetaminophen (Tylenol Tab) 650 mg Q4H PRN PO PAIN AND OR ELEVATED TEMP; Start 06/09/17 at 01:00 Acetaminophen/ Hydrocodone Bitart ([place] (5/325)) 1 tab Q4H PRN PO MODERATE PAIN Last administered on 06/09/17 20:12; Admin Dose 1 TAB; Start 06/09/17 at 01:00 Morphine Sulfate (morphine) 3 mg Q4H PRN IV SEVERE PAIN; Start 06/09/17 at 01: 00 Ondansetron HCl (Zofran Inj) 4 mg Q6H PRN IV NAUSEA AND/OR VOMITING; Start at 01:00 Zolpidem Tartrate (Ambien) 10 mg HS PRN PO INSOMNIA Last administered on 21:22; Admin Dose 10 MG; Start 06/09/17 at 01:00 Enoxaparin Sodium (Lovenox) 40 mg DAILY SC Last administered on 06/10/17 08:23 ; Admin Dose 40 MG; Start 06/09/17 at 09:00 Aspirin (Halfprin) 81 mg DAILY PO Last administered on 06/10/17 08:12; Admin Dose 81 MG; Start 06/09/17 at 09:00 Benazepril HCl (Lotensin) 40 mg DAILY PO Last administered on 06/10/17 08:13; Admin Dose 40 MG; Start 06/09/17 at 09:00 Pantoprazole (Protonix Tab) 40 mg BID@06,18 PO Last administered on 06/10/17 06:23; Admin Dose 40 MG; Start 06/09/17 at 06:00 Salmeterol Xinafoate/ Fluticasone (Advair 250/50 Diskus) 1 inh BID INH Last administered on 06/10/17 08:13; Admin Dose 1 INH; Start 06/09/17 at 09:00 Diagnostic Test (Pha) (Accu-Chek) 1 ea 02 XX ; Start 06/09/17 at 02:00 Insulin Glargine 27 unit 27 unit DAILY@08 SC Last administered on 06/10/17 08: 27; Admin Dose 27 UNIT; Start 06/09/17 at 08:00 Vancomycin HCl/ Sodium Chloride (Vancocin/NS) 250 ml @ 83.333 mls/ hr Q12H IVPB Last administered on 06/10/17 09:43; Admin Dose 83.333 MLS/HR; Start at 08:00 JANIS AGUIRRE Jun 10, 2017 13:35
[2017-06-10 13:43] VITALS: BP 110/62; RESP 16
[2017-06-10] MEDS: HYDROCODONE/APAP (5/325) TAB PO PRN ×2 (16:19→20:38)
--- NOTE | 2017-06-10 17:57 | RADRPT ---
PROCEDURE: XR Chest. CLINICAL INDICATION: Right sided PICC placement TECHNIQUE: Single view of the chest COMPARISON: Chest radiograph June 08, 2017 FINDINGS: There is evidence of a right-sided PICC with its tip at the mid to lower SVC. The lungs are clear. The heart size is normal. There is no pleural effusion. There is no pneumothorax. There is no acute osseous abnormality. IMPRESSION: 1. Right-sided PICC with its tip at the mid to lower SVC. 2. Otherwise no change. RPTAT: [facility]U .Teodoro Garcia MD, MD Date Time Electronically viewed and signed by .Teodoro Garcia MD, on 06/10/2017 17:57 .K/
[2017-06-10] MEDS ORDERED: SOD CHLORIDE 0.9% 100 ML ONE (18:32)
--- NOTE | 2017-06-10 18:59 | RADRPT ---
PROCEDURE: ULTRASOUND GUIDED PICC PLACEMENT CLINICAL INDICATION: Requirement for vascular access. TECHNIQUE: Ultrasound guided PICC placement. COMPARISON: None available. FINDINGS: An ultrasound was performed for PICC placement in the right upper extremity. IMPRESSION: Ultrasound guided PICC placement. RPTAT: HCTS Diana Morales Physician Date Time Electronically viewed and signed by Diana Morales Physician on 06/10/2017 18:58 /
[2017-06-10 19:42] VITALS: BP 111/57; RESP 20
[2017-06-10] MEDS: ZOLPIDEM 5 MG TAB PO PRN (20:38)
[2017-06-10] MEDS: VANCOMYCIN 1 GM in NS 250 ML IVPB SCH (22:26)
--- NOTE | 2017-06-10 23:54 | CONS ---
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 Her pain is decreased and her discoloration in her medial right ankle is also reduced. She is on IVAbx. I recommend PICC line with six weeks of IVAbx. Eventually she is going to need right ankle Charcot reconstruction but not during this visit. Her infection will need to be resolved prior to surgery. She may be discharged as per foot and ankle surgery pending PICC line, home NVS and IVAbx. Consultation Date/Type/Reason Admit Date/Time Jun 08, 2017 at 22:59 Past Surgical History Past Surgical Hx: no surgical history Social History Smoking Status: Former smoker Exam/Review of Systems Vital Signs Vitals Vital Signs Date Time Temp Pulse Resp B/P Pulse Ox O2 Delivery O2 Flow Rate FiO2 06/10/17 19:42 97.9 83 20 111/57 98 06/09/17 00:30 Room Air Intake and Output 06/09/17 06/09/17 06/10/17 15:00 23:00 07:00 Intake Total 1580 ml 800 ml Output Total 1400 ml Balance 180 ml 800 ml Results Result Diagram: 06/10/17 0520 06/10/17 0520 Results 24 hrs Laboratory Tests Test 06/10/17 05:20 06/10/17 08:11 06/10/17 12:23 06/10/17 18:24 White Blood Count 7.5 Red Blood Count 2.81 L Hemoglobin 7.9 L Hematocrit 25.1 L Mean Corpuscular Volume 89.3 Mean Corpuscular Hemoglobin 28.1 L Mean Corpuscular Hemoglobin Concent 31.5 L Red Cell Distribution Width 16.5 H Platelet Count 364 Mean Platelet Volume 8.9 Neutrophils % 58.6 Lymphocytes % 28.9 Monocytes % 9.6 Eosinophils % 2.0 Basophils % 0.5 Nucleated Red Blood Cells % 0.0 Neutrophils # 4.4 Lymphocytes # 2.2 Monocytes # 0.7 Eosinophils # 0.2 Basophils # 0.0 Nucleated Red Blood Cells # 0.0 Sodium Level 137 Potassium Level 4.3 Chloride Level 107 Carbon Dioxide Level 25 Anion Gap 9 Blood Urea Nitrogen 22 H Creatinine 0.84 Glucose Level 134 Calcium Level 9.7 Phosphorus Level 4.1 Magnesium Level 1.7 Bedside Glucose 137 196 106 Test 06/10/17 19:45 06/10/17 20:37 Vancomycin Level Trough 19.0 Bedside Glucose 157 Medications Medications Current Medications Cefepime HCl (Maxipime 1gm/50 ml (Pmx)) 50 ml @ 100 mls/hr Q12 IVPB Last administered on 06/10/17 20:38; Admin Dose 100 MLS/HR; Start 06/09/17 at 09:00 Acetaminophen (Tylenol Tab) 650 mg Q4H PRN PO PAIN AND OR ELEVATED TEMP; Start 06/09/17 at 01:00 Acetaminophen/ Hydrocodone Bitart ([place] (5/325)) 1 tab Q4H PRN PO MODERATE PAIN Last administered on 06/10/17 20:38; Admin Dose 1 TAB; Start 06/09/17 at 01:00 Morphine Sulfate (morphine) 3 mg Q4H PRN IV SEVERE PAIN; Start 06/09/17 at 01: 00 Ondansetron HCl (Zofran Inj) 4 mg Q6H PRN IV NAUSEA AND/OR VOMITING; Start at 01:00 Zolpidem Tartrate (Ambien) 10 mg HS PRN PO INSOMNIA Last administered on 20:38; Admin Dose 10 MG; Start 06/09/17 at 01:00 Enoxaparin Sodium (Lovenox) 40 mg DAILY SC Last administered on 06/10/17 08:23 ; Admin Dose 40 MG; Start 06/09/17 at 09:00 Aspirin (Halfprin) 81 mg DAILY PO Last administered on 06/10/17 08:12; Admin Dose 81 MG; Start 06/09/17 at 09:00 Benazepril HCl (Lotensin) 40 mg DAILY PO Last administered on 06/10/17 08:13; Admin Dose 40 MG; Start 06/09/17 at 09:00 Pantoprazole (Protonix Tab) 40 mg BID@06,18 PO Last administered on 06/10/17 18:23; Admin Dose 40 MG; Start 06/09/17 at 06:00 Salmeterol Xinafoate/ Fluticasone (Advair 250/50 Diskus) 1 inh BID INH Last administered on 06/10/17 20:38; Admin Dose 1 INH; Start 06/09/17 at 09:00 Diagnostic Test (Pha) (Accu-Chek) 1 ea 02 XX ; Start 06/09/17 at 02:00 Insulin Glargine (Lantus) 27 unit DAILY@08 SC Last administered on 06/10/17 08 :27; Admin Dose 27 UNIT; Start 06/09/17 at 08:00 IV Flush 10 ml 10 ml PRN PRN IV IV PROTOCOL; Start 06/10/17 at 18:30 Vancomycin HCl (Vancocin) 250 ml @ 125 mls/hr Q12H IVPB Last administered on 22:26; Admin Dose 125 MLS/HR; Start 06/10/17 at 22:00 ROHINI FONSECA DPM Jun 10, 2017 23:54
[2017-06-11 01:46] VITALS: BP 93/46; RESP 20
[2017-06-11] MEDS: ACCU-CHEK XX SCH (02:00)
[2017-06-11] MEDS: PANTOPRAZOLE (EC) 40 MG TAB PO SCH ×2 (05:29→17:50)
[2017-06-11 05:44] LABS: BASOPHILS % 0.6 % (0.0-2.0); EOSINOPHILS # 0.2 10^3/ul (0.0-0.5); EOSINOPHILS % 2.4 % (0.0-7.0); HEMATOCRIT 24.8 % (37.0-47.0); LYMPHOCYTES # 1.8 10^3/ul (0.8-2.9); LYMPHOCYTES % 26.8 % (15.0-51.0); MEAN CORPUSCULAR HEMOGLOBIN 29.2 pg (29.0-33.0); MEAN CORPUSCULAR HGB CONC 32.3 g/dl (32.0-37.0); MEAN CORPUSCULAR VOLUME 90.5 fl (82.0-101.0); MEAN PLATELET VOLUME 8.9 fl (7.4-10.4); MONOCYTE # 0.6 10^3/ul (0.3-0.9); MONOCYTES % 9.2 % (0.0-11.0); NEUTROPHIL # 4.1 10^3/ul (1.6-7.5); NEUTROPHILS % 60.6 % (39.0-77.0); PLATELET COUNT 370 10^3/UL (140-415); RED BLOOD COUNT 2.74 10^6/ul (4.20-5.40); RED CELL DISTRIBUTION WIDTH 16.2 % (11.5-14.5); WHITE BLOOD COUNT 6.7 10^3/ul (4.8-10.8)
[2017-06-11 06:08] LABS: CALCIUM 9.4 mg/dl (8.4-10.2); CREATININE 0.9 mg/dl (0.44-1.00); MAGNESIUM 1.7 mg/dl (1.7-2.5); PHOSPHORUS 3.8 mg/dl (2.5-4.9); POTASSIUM 4.4 mmol/L (3.5-5.1)
[2017-06-11 06:10] LABS: RETICULOCYTE COUNT % 2.4 % (0.5-1.5)
[2017-06-11 07:45] VITALS: BP 113/54; RESP 18
[2017-06-11] MEDS: SALMETEROL/FLUTICASONE 250/50 INHA INH SCH ×2 (07:48→21:11)
[2017-06-11] MEDS: IPRATROPIUM (HFA) 12.9 GM INHALER INH PRN ×2 (07:48→17:01)
[2017-06-11] MEDS: INSULIN ASPART [NOVOLOG] 3 ML PEN SC SCH ×7 (07:57→21:00)
[2017-06-11] MEDS: INSULIN GLARGINE [LANtus] 3 ML PEN SC SCH (08:00)
[2017-06-11] MEDS: CEFEPIME 1GM/50 ML (PMX) 50 ML IVPB SCH (09:05)
[2017-06-11] MEDS: ASPIRIN (EC) 81 MG TAB PO SCH (09:05)
[2017-06-11] MEDS: BENAZEPRIL 40 MG TAB PO SCH (09:06)
[2017-06-11] MEDS: ENOXAPARIN 40 MG/0.4 ML SYG SC SCH (09:21)
[2017-06-11] MEDS: VANCOMYCIN 1 GM in NS 250 ML IVPB SCH ×2 (10:02→21:16)
--- NOTE | 2017-06-11 13:49 | CONS ---
Date/Time of Note Date/Time of Note DATE: 06/11/17 TIME: 13:48 Assessment/Plan Assessment/Plan Chief Complaint/Hosp Course SUBJECTIVE DATA: No events overnight. The patient is alert, feels better, looks comfortable. Denies pain. Wants to go home. No fevers. ANTIMICROBIALS: 1. Vancomycin. 2. Cefepime. MICROBIOLOGY: Blood cultures remain negative. Urine culture growing E coli. PHYSICAL EXAMINATION: GENERAL: This is a well-developed, middle-aged white woman, who is awake, in no distress. HEENT: Head atraumatic, normocephalic. Sclerae anicteric. Buccal mucosa dry. NECK: Supple. LUNGS: Chest rise symmetrical. Breath sounds diminished at the bases. HEART: S1, S2. ABDOMEN: Soft, bowel sounds present. EXTREMITIES: With right foot erythema, edema and deformity. ASSESSMENT: 1. Right foot cellulitis with osteomyelitis 2. Escherichia coli urinary tract infection. 3. Diabetes. 4. Right Charcot. 5. Obesity. PLAN: The patient remains stable. Podiatry follows, no plans for surgical intervention, patient is status post PICC line, okay discharge home on IV vancomycin and Rocephin for 6-8 weeks, follow with podiatry outpatient Problems: Consultation Date/Type/Reason Admit Date/Time Jun 08, 2017 at 22:59 Initial Consult Date Type of Consultation: ID Exam/Review of Systems Vital Signs Vitals Vital Signs Date Time Temp Pulse Resp B/P Pulse Ox O2 Delivery O2 Flow Rate FiO2 06/11/17 07:45 98.3 77 18 113/54 96 06/09/17 00:30 Room Air Intake and Output 06/10/17 06/10/17 06/11/17 15:00 23:00 07:00 Intake Total 300 ml 690 ml 250 ml Output Total 100 ml Balance 300 ml 590 ml 250 ml Results Result Diagram: 06/11/17 0514 06/11/17 0513 Results 24 hrs Laboratory Tests Test 06/10/17 18:24 06/10/17 19:45 06/10/17 20:37 06/11/17 05:13 Bedside Glucose 106 157 Vancomycin Level Trough 19.0 Sodium Level 137 Potassium Level 4.4 Chloride Level 107 Carbon Dioxide Level 26 Anion Gap 8 Blood Urea Nitrogen 23 H Creatinine 0.90 Glucose Level 135 Calcium Level 9.4 Phosphorus Level 3.8 Magnesium Level 1.7 Test 06/11/17 05:14 06/11/17 07:51 06/11/17 12:17 White Blood Count 6.7 Red Blood Count 2.74 L Hemoglobin 8.0 L Hematocrit 24.8 L Mean Corpuscular Volume 90.5 Mean Corpuscular Hemoglobin 29.2 Mean Corpuscular Hemoglobin Concent 32.3 Red Cell Distribution Width 16.2 H Platelet Count 370 Mean Platelet Volume 8.9 Neutrophils % 60.6 Lymphocytes % 26.8 Monocytes % 9.2 Eosinophils % 2.4 Basophils % 0.6 Nucleated Red Blood Cells % 0.0 Neutrophils # 4.1 Lymphocytes # 1.8 Monocytes # 0.6 Eosinophils # 0.2 Basophils # 0.0 Nucleated Red Blood Cells # 0.0 Absolute Reticulocyte Count 0.064 Percent Reticulocyte Count 2.4 H Bedside Glucose 134 167 Medications Medications Current Medications Cefepime HCl (Maxipime 1gm/50 ml (Pmx)) 50 ml @ 100 mls/hr Q12 IVPB Last administered on 06/11/17 09:05; Admin Dose 100 MLS/HR; Start 06/09/17 at 09:00 Acetaminophen (Tylenol Tab) 650 mg Q4H PRN PO PAIN AND OR ELEVATED TEMP; Start 06/09/17 at 01:00 Acetaminophen/ Hydrocodone Bitart ([place] (5/325)) 1 tab Q4H PRN PO MODERATE PAIN Last administered on 06/10/17 20:38; Admin Dose 1 TAB; Start 06/09/17 at 01:00 Morphine Sulfate (morphine) 3 mg Q4H PRN IV SEVERE PAIN; Start 06/09/17 at 01: 00 Ondansetron HCl (Zofran Inj) 4 mg Q6H PRN IV NAUSEA AND/OR VOMITING Last administered on 06/11/17 09:06; Admin Dose 4 MG; Start 06/09/17 at 01:00 Zolpidem Tartrate (Ambien) 10 mg HS PRN PO INSOMNIA Last administered on 20:38; Admin Dose 10 MG; Start 06/09/17 at 01:00 Enoxaparin Sodium (Lovenox) 40 mg DAILY SC Last administered on 06/11/17 09:21 ; Admin Dose 40 MG; Start 06/09/17 at 09:00 Aspirin (Halfprin) 81 mg DAILY PO Last administered on 06/11/17 09:05; Admin Dose 81 MG; Start 06/09/17 at 09:00 Benazepril HCl (Lotensin) 40 mg DAILY PO Last administered on 06/11/17 09:06; Admin Dose 40 MG; Start 06/09/17 at 09:00 Pantoprazole (Protonix Tab) 40 mg BID@06,18 PO Last administered on 06/11/17 05:29; Admin Dose 40 MG; Start 06/09/17 at 06:00 Salmeterol Xinafoate/ Fluticasone (Advair 250/50 Diskus) 1 inh BID INH Last administered on 06/11/17 07:48; Admin Dose 1 INH; Start 06/09/17 at 09:00 Diagnostic Test (Pha) (Accu-Chek) 1 ea 02 XX ; Start 06/09/17 at 02:00 Insulin Glargine (Lantus) 27 unit DAILY@08 SC Last administered on 06/11/17 08 :00; Admin Dose 27 UNIT; Start 06/09/17 at 08:00 IV Flush 10 ml 10 ml PRN PRN IV IV PROTOCOL; Start 06/10/17 at 18:30 Vancomycin HCl (Vancocin) 250 ml @ 125 mls/hr Q12H IVPB Last administered on 10:02; Admin Dose 125 MLS/HR; Start 06/10/17 at 22:00 Miscellaneous Information (*Rx Drug Level Order Reminder*) 1 ONCE ONCE XX ; Start 06/12/17 at 09:00; Stop 06/12/17 at 09:01 SABINA LUQUE NP Jun 11, 2017 13:49
[2017-06-11 14:00] VITALS: BP 104/51; RESP 16
[2017-06-11] MEDS: CEFTRIAXONE 1 GM/50 ML (PMX) 50 ML IVPB SCH (14:20)
--- NOTE | 2017-06-11 16:47 | PN ---
Date/Time of Note Date/Time of Note DATE: 06/11/17 TIME: 16:39 Assessment/Plan VTE Prophylaxis VTE Prophylaxis Intervention: SCD's Lines/Catheters IV Catheter Type (from Nrsg): PICC Line Central line still needed: Yes Assessment/Plan Chief Complaint/Hosp Course Patient is a 56-year-old female with a history of right foot osteomyelitis and right Charcot foot who presents with worsening right foot pain as a direct admit from podiatry with possible new onset osteomyelitis and abscess Assessment Osteomyelitis of the distal tibia and fibula, talar remnant, calcaneum remnant, cuboid, navicular Pseudoarthrosis of right foot with complex fluid collection, possible abscess Chronic right foot pain Right Charcot foot Anemia Diabetes Hypertension COPD Anxiety Plan -Podiatry recommends IV antibiotics for 6 weeks -ID recs appreciated -switching to ceftriaxone from cefepime today, continue vancomycin. Needs to get dose of ceftriaxone and monitored before outpatient IV abx can be scheduled per outpatient abx company. -Continue patient's home medications as needed -anemia stable, retic index low, consistent with inappropriate production, likely 2/2 DM/anemia of chronic disease, needs outpatient follow up. -Pain control as needed -Insulin for diabetes -Breathing treatments as needed -Follow-up with podiatry recommendations and proceed after possible intervention -picc line in - Problems: Subjective 24 Hr Interval Summary Free Text/Dictation no acute complaints Exam/Review of Systems Vital Signs Vitals Vital Signs Date Time Temp Pulse Resp B/P Pulse Ox O2 Delivery O2 Flow Rate FiO2 06/11/17 14:00 98.0 86 16 104/51 96 06/09/17 00:30 Room Air Intake and Output 06/10/17 06/10/17 06/11/17 15:00 23:00 07:00 Intake Total 300 ml 690 ml 250 ml Output Total 100 ml Balance 300 ml 590 ml 250 ml Exam Physical exam General: Patient is laying in bed and answers questions appropriately Mentation: Patient is alert and oriented 4, Head: Normocephalic atraumatic Eyes: EOMI, pupils reactive to light Neck: Supple, nontender, midline Respiratory: Clear to auscultation bilaterally Cardiovascular: regular rate, no obvious murmurs Gastrointestinal: non-tender to palpation, bowel sounds heard. Neurological: Moves all extremities spontaneously Skin:R foot does not have obvious purulent drainage. Healed wound on bottom of foot, tenderness and erythema located on heel/ankle area on the R Results Result Diagram: 06/11/17 0514 06/11/17 0513 Results 24 hrs Laboratory Tests Test 06/10/17 18:24 06/10/17 19:45 06/10/17 20:37 06/11/17 05:13 Bedside Glucose 106 157 Vancomycin Level Trough 19.0 Sodium Level 137 Potassium Level 4.4 Chloride Level 107 Carbon Dioxide Level 26 Anion Gap 8 Blood Urea Nitrogen 23 H Creatinine 0.90 Glucose Level 135 Calcium Level 9.4 Phosphorus Level 3.8 Magnesium Level 1.7 Test 06/11/17 05:14 06/11/17 07:51 06/11/17 12:17 White Blood Count 6.7 Red Blood Count 2.74 L Hemoglobin 8.0 L Hematocrit 24.8 L Mean Corpuscular Volume 90.5 Mean Corpuscular Hemoglobin 29.2 Mean Corpuscular Hemoglobin Concent 32.3 Red Cell Distribution Width 16.2 H Platelet Count 370 Mean Platelet Volume 8.9 Neutrophils % 60.6 Lymphocytes % 26.8 Monocytes % 9.2 Eosinophils % 2.4 Basophils % 0.6 Nucleated Red Blood Cells % 0.0 Neutrophils # 4.1 Lymphocytes # 1.8 Monocytes # 0.6 Eosinophils # 0.2 Basophils # 0.0 Nucleated Red Blood Cells # 0.0 Absolute Reticulocyte Count 0.064 Percent Reticulocyte Count 2.4 H Bedside Glucose 134 167 Medications Medications Current Medications Acetaminophen (Tylenol Tab) 650 mg Q4H PRN PO PAIN AND OR ELEVATED TEMP; Start 06/09/17 at 01:00 Acetaminophen/ Hydrocodone Bitart ([place] (5/325)) 1 tab Q4H PRN PO MODERATE PAIN Last administered on 06/10/17 20:38; Admin Dose 1 TAB; Start 06/09/17 at 01:00 Morphine Sulfate (morphine) 3 mg Q4H PRN IV SEVERE PAIN; Start 06/09/17 at 01: 00 Ondansetron HCl (Zofran Inj) 4 mg Q6H PRN IV NAUSEA AND/OR VOMITING Last administered on 06/11/17 09:06; Admin Dose 4 MG; Start 06/09/17 at 01:00 Zolpidem Tartrate (Ambien) 10 mg HS PRN PO INSOMNIA Last administered on 20:38; Admin Dose 10 MG; Start 06/09/17 at 01:00 Enoxaparin Sodium (Lovenox) 40 mg DAILY SC Last administered on 06/11/17 09:21 ; Admin Dose 40 MG; Start 06/09/17 at 09:00 Aspirin (Halfprin) 81 mg DAILY PO Last administered on 06/11/17 09:05; Admin Dose 81 MG; Start 06/09/17 at 09:00 Benazepril HCl (Lotensin) 40 mg DAILY PO Last administered on 06/11/17 09:06; Admin Dose 40 MG; Start 06/09/17 at 09:00 Pantoprazole (Protonix Tab) 40 mg BID@06,18 PO Last administered on 06/11/17 05:29; Admin Dose 40 MG; Start 06/09/17 at 06:00 Salmeterol Xinafoate/ Fluticasone (Advair 250/50 Diskus) 1 inh BID INH Last administered on 06/11/17 07:48; Admin Dose 1 INH; Start 06/09/17 at 09:00 Diagnostic Test (Pha) (Accu-Chek) 1 ea 02 XX ; Start 06/09/17 at 02:00 Insulin Glargine (Lantus) 27 unit DAILY@08 SC Last administered on 06/11/17 08 :00; Admin Dose 27 UNIT; Start 06/09/17 at 08:00 IV Flush 10 ml 10 ml PRN PRN IV IV PROTOCOL; Start 06/10/17 at 18:30 Vancomycin HCl (Vancocin) 250 ml @ 125 mls/hr Q12H IVPB Last administered on 10:02; Admin Dose 125 MLS/HR; Start 06/10/17 at 22:00 Miscellaneous Information 1 ONCE ONCE XX ; Start 06/12/17 at 09:00; Stop at 09:01 Ceftriaxone Sodium (Rocephin) 50 ml @ 100 mls/hr Q24H IVPB Last administered on 06/11/17 14:20; Admin Dose 100 MLS/HR; Start 06/11/17 at 14:30 JANIS AGUIRRE Jun 11, 2017 16:47
[2017-06-11] MEDS: HYDROCODONE/APAP (5/325) TAB PO PRN (17:50)
[2017-06-11 19:32] VITALS: BP 113/56; RESP 20
[2017-06-11] MEDS: ZOLPIDEM 5 MG TAB PO PRN (21:08)
[2017-06-12 01:22] VITALS: BP 129/61; RESP 20
[2017-06-12] MEDS: ACCU-CHEK XX SCH (02:00)
[2017-06-12] MEDS: PANTOPRAZOLE (EC) 40 MG TAB PO SCH (06:11)
[2017-06-12 07:22] VITALS: BP 110/60; RESP 20
[2017-06-12] MEDS: SALMETEROL/FLUTICASONE 250/50 INHA INH SCH (07:54)
[2017-06-12] MEDS: INSULIN ASPART [NOVOLOG] 3 ML PEN SC SCH ×4 (07:56→12:03)
[2017-06-12] MEDS: INSULIN GLARGINE [LANtus] 3 ML PEN SC SCH (08:05)
[2017-06-12] MEDS: ASPIRIN (EC) 81 MG TAB PO SCH (09:03)
[2017-06-12] MEDS: BENAZEPRIL 40 MG TAB PO SCH (09:04)
[2017-06-12] MEDS: VANCOMYCIN 1 GM in NS 250 ML IVPB SCH (09:05)
[2017-06-12] MEDS: ENOXAPARIN 40 MG/0.4 ML SYG SC SCH (09:49)
--- NOTE | 2017-06-12 12:00 | PDOCDIS ---
Discharge Instructions CONDITION Patient Condition: Stable HOME CARE INSTRUCTIONS: Diet Instructions: Reduced Calorie ACTIVITY: Activity Restrictions: Slowly Increase Activity FOLLOW UP/APPOINTMENTS Follow-up Plan 1. Follow up with Dr. Vides, podiatry as soon as possible 2. Complete full 6 week course of IV abx per home health IV infusion. JANIS AGUIRRE Jun 12, 2017 12:00
--- NOTE | 2017-06-12 12:06 | PDOCDIS ---
Discharge Instructions CONDITION Patient Condition: Stable HOME CARE INSTRUCTIONS: Diet Instructions: Reduced Calorie ACTIVITY: Activity Restrictions: Slowly Increase Activity FOLLOW UP/APPOINTMENTS Follow-up Plan 1. Follow up with Dr. Vides, podiatry as soon as possible 2. Complete full 6 week course of IV abx per home health IV infusion. 3. Follow up with your primary care provider regarding anemia (low hemoglobin) as soon as possible. JANIS AGUIRRE Jun 12, 2017 12:06
[2017-06-12 13:06] VITALS: BP 118/56; RESP 20
[2017-06-12] MEDS: CEFTRIAXONE 1 GM/50 ML (PMX) 50 ML IVPB SCH (14:19)
--- NOTE | 2017-06-12 16:20 | DS ---
Date/Time of Note Date/Time of Note DATE: 06/12/17 TIME: 16:20 Discharge Summary Admission/Discharge Info Admit Date/Time Jun 08, 2017 at 22:59 Discharge Date/Time Jun 12, 2017 at 16:00 Patient Condition: Stable Hx of Present Illness This is a 56-year-old female with history of right Charcot foot, right foot osteomyelitis, hypertension, COPD, anxiety/depression, diabetes, esophagitis/ gastritis who was sent from [facility] for right foot swelling/tenderness/erythema. Patient uses a walker for ambulation and reported worsening pain of the right foot. She reported having had some yellowish drainage from the heel of her right foot a week or so ago. Reported chills here in the hospital which she attributed to the room being cold otherwise denied fever. Right foot MRI shows the followin. Osteomyelitis the distal tibia and fibula, the talar remnant, the calcaneal remnant, the cuboid and navicular. 2. Pseudoarthrosis at the talar and calcaneal remnants, with complex fluid collection in region of pseudarthrosis, perhaps representing an abscess. 3. Consider more sensitive and specific IV contrast enhanced MRI examination for further evaluation. 4. Increased osseous destruction in the right mid lung that over interval since 06/01/2016. Hospital Course Patient is a 56-year-old female with a history of right foot osteomyelitis and right Charcot foot who presents with worsening right foot pain as a direct admit from podiatry with possible new onset osteomyelitis and abscess Assessment Osteomyelitis of the distal tibia and fibula, talar remnant, calcaneum remnant, cuboid, navicular Pseudoarthrosis of right foot with complex fluid collection, possible abscess Chronic right foot pain Right Charcot foot Anemia Diabetes Hypertension COPD Anxiety Hospital course Patient is a 56-year-old female with a history of right foot osteomyelitis who presents with right foot osteomyelitis again, patient was sent by her bander operator, patient was evaluated by ID and podiatry during this stay, both recommended IV antibiotics for 6 weeks. Patient tolerated IV antibiotics well and will be discharged with IV infusion with home health for 6 weeks of ceftriaxone and vancomycin. Labs will be monitored by [facility]. Patient was instructed to follow-up with her primary care provider as soon as possible to evaluate her anemia, which appears to be hypoproliferative at this time, hemoglobin at this time is stable and no signs of acute bleed. Patient understands and will be discharged with wheelchair and bedside commode with IV antibiotics and home health. Home Meds Active Scripts Insulin Glargine* (Lantus*) 100 Unit/Ml Soln, 27 UNIT SC QAM for 30 Days Prov:SHILANISHA 06/08/16 Insulin Aspart* (Novolog Insulin Pen*) 100 Unit/Ml Soln, 5 UNIT SC WITH MEALS for 30 Days Prov:NISHA FUCHS 06/08/16 Pantoprazole* (Protonix*) 40 Mg Tablet.dr, 40 MG PO BID for 30 Days, TAB Prov:NICHELLEIDONISHA William 06/08/16 Benazepril Hcl* (Benazepril Hcl*) 40 Mg Tablet, 40 MG PO DAILY for 30 Days, TAB Prov:NISHA FUCHS 06/08/16 Aspirin* (Aspirin* EC) 81 Mg Tablet.dr, 81 MG PO DAILY for 30 Days Prov:NISHA FUCHS 06/08/16 Reported Medications Pioglitazone Hcl* (Pioglitazone Hcl*) 30 Mg Tablet, 30 MG PO DAILY, TAB 06/08/17 Metformin Hcl* (Metformin Hcl*) 1,000 Mg Tablet, 1000 MG PO WITH BREAKFAST, #30 TAB 06/08/17 Ipratropium [place]* (Atrovent HFA*) 12.9 Gm Aer.w.adap, 2 PUFF INHALATION Q4H Y for WHEEZING AND SOB, #1 INHALER 05/06/16 Salmeterol Xinaf/Fluticasone* (Advair*) 250-50 Diskus Inhaler, 1 INH INHALATION BID, #1 INHALER 05/06/16 Discontinued Reported Medications Ibuprofen* (Motrin*) 600 Mg Tab, 600 MG PO Q6H Y for PAIN, TAB 07/28/16 Discontinued Scripts Metformin* (Glucophage*) 1,000 Mg Tablet, 1000 MG PO BID, #60 TAB Prov:NISHA FUCHS 06/08/16 Follow-up Plan 1. Follow up with Dr. Vides, podiatry as soon as possible 2. Complete full 6 week course of IV abx per home health IV infusion. 3. Follow up with your primary care provider regarding anemia (low hemoglobin) as soon as possible. Primary Care Provider [facility] Time spent on discharge: > 30 minutes Pending Labs Laboratory Tests Test 06/11/17 17:42 06/11/17 21:10 06/12/17 07:56 06/12/17 08:55 Bedside Glucose 124mg/dL (70-220) 165mg/dL (70-220) 135mg/dL (70-220) Vancomycin Level Trough 15.6ug/ml (10.0-20.0) Test 06/12/17 11:55 Bedside Glucose 145mg/dL (70-220) JANIS AGUIRRE Jun 12, 2017 16:20
== END 2017-06-12 16:00 | disposition home health service (06) | DRG 638 ==
LOC: E/R 15:38 → MS2 22:59
PROVIDERS: ADMIT Hospitalist; ATTEND Internal Medicine
PROC: 02HV33Z Insertion of Infusion Device into Superior Vena Cava, Percutaneous Approach (ICD-10-PCS; principal; 2017-06-10)
PROC: B54MZZA Ultrasonography of Right Upper Extremity Veins, Guidance (ICD-10-PCS; 2017-06-10)
PROC: 3E0234Z Introduction of Serum, Toxoid and Vaccine into Muscle, Percutaneous Approach (ICD-10-PCS; 2017-06-10)
DX: E11.69 Type 2 diabetes mellitus with other specified complication (principal); M86.171 Other acute osteomyelitis, right ankle and foot; E11.42 Type 2 diabetes mellitus with diabetic polyneuropathy; E11.621 Type 2 diabetes mellitus with foot ulcer; M86.8X6 Other osteomyelitis, lower leg; L03.115 Cellulitis of right lower limb; M84.674A Pathological fracture in other disease, right foot, initial encounter for fracture; N39.0 Urinary tract infection, site not specified; L02.611 Cutaneous abscess of right foot; Z23 Encounter for immunization; E11.610 Type 2 diabetes mellitus with diabetic neuropathic arthropathy; F41.9 Anxiety disorder, unspecified; I10 Essential (primary) hypertension; Z85.828 Personal history of other malignant neoplasm of skin; J44.9 Chronic obstructive pulmonary disease, unspecified; B96.20 Unspecified Escherichia coli [E. coli] as the cause of diseases classified elsewhere; Z68.32 Body mass index [BMI] 32.0-32.9, adult; E66.9 Obesity, unspecified; Z79.4 Long term (current) use of insulin; Z79.82 Long term (current) use of aspirin; L85.1 Acquired keratosis [keratoderma] palmaris et plantaris; L97.512 Non-pressure chronic ulcer of other part of right foot with fat layer exposed
CPT/HCPCS: 36415; 36569; 71010; 73630; 73718; 76937; 80048; 80053; 80061; 80202; 81001; 82962; 83036; 83605; 83735; 84100; 85025; 85045; 85651; 87040; 87086; 90686; 96374; 96375; J0692; J0696; J1650; J1815; J2405; J3370; J7030; J7050

== ENCOUNTER 2017-09-24 10:10 | Day surgery (SDC) | END 2017-09-24 18:58 | disposition home or self-care (01) ==

== ENCOUNTER 2017-09-25 14:49 | Emergency (ER) | END 2017-09-25 22:11 | disposition home or self-care (01) ==